=== PATIENT | male | born 1940 | race Caucasian/White ===

== ENCOUNTER 2020-10-07 20:17 | Observation (INO) | payer MEDICARE, BC ==
[~2020-10-07] VITALS: Ht 170.2 cm; Wt 74.4 kg
--- NOTE | ~2020-10-07 | CON ---
[address] [address] CONSULTATION Name: FLORESITA CABALLERO Room: [address] Carole#: [id number] Admission: 10/08/20 Attend Phys: Tahir Moffett Discharge: Date of : 38 Report #: [id number] THIS REPORT FOR: cc: Lewis Pretty MD, Thomas MD Arakelov,Stan Winston MD ~ DOC #: [id number] Stan Alvarez MD DATE OF CONSULTATION: 10/08/2020 REQUESTING PHYSICIAN: Dr. Juarez. REASON FOR CONSULTATION: Acute kidney injury. HISTORY OF PRESENT ILLNESS: The patient is an 80-year-old gentleman with medical history significant for lung cancer with metastasis to the brain. Followed by four h agent, Dr. Love my partner, also follows with oncologist at [facility]. He was admitted recently at [facility] discharged just a week ago. He had acute kidney injury while he was there, but apparently was not told the reason for that. His creatinine went up from 2.5-3.7. His told me that the creatinine was 3.7 at discharge. Over there, they were suspecting pulmonary embolism and started him empirically on blood thinners. Next day, he developed some bleeding and a branch library clerk stopped anticoagulation and apparently told the patient's that he did not think that the patient had pulmonary embolism. He also had some seizures post-weaning of his steroids. He has steroids for his brain tumor. Also, had radiation to the brain tumor. He usually does not have a brain tumor and he has metastatic tumor to his brain from his lungs. PAST MEDICAL HISTORY: Also significant for diabetes mellitus type 2, chronic kidney disease stage IV and history of lung cancer as mentioned earlier. SOCIAL HISTORY: No current tobacco or alcohol abuse. FAMILY HISTORY: Positive for lung cancer, diabetes, and esophageal cancer. REVIEW OF SYSTEMS: Positive for overall weakness, low energy level. PHYSICAL EXAMINATION: GENERAL: Awake, alert, and oriented, no acute distress. VITAL SIGNS: Blood pressure is 137/53, heart rate 67, afebrile. HEENT: Pupils are round. NECK: Supple. LUNGS: Decreased air movements. No crackles. HEART: Distant heart tones[place] [address] CONSULTATION Name: FLORESITA CABALLERO Room: [address] Carole#: [id number] Admission: 10/08/20 Attend Phys: Tahir Moffett Discharge: Date of : 38 Report #: [id number] ABDOMEN: Obese, soft. EXTREMITIES: Lower extremities, +1 edema. LABORATORY DATA: Revealed hemoglobin 7.8, platelet count 400,000. Serum sodium 134, potassium 4.7, chloride 101, carbon dioxide 23, BUN 43, creatinine 3.9. ASSESSMENT: 1. Acute kidney injury, etiology not entirely clear. His creatinine was going up while he was at a nursing facility 2 weeks ago. He looks somewhat dry to me. 2. Chronic kidney disease stage 4. 3. Diabetes mellitus type 2. 4. Metastatic lung cancer. PLAN: 1. I asked him to drink a little more fluids, but I would not give him any IV fluids. 2. Avoid nephrotoxic medications. 3. Obtain renal ultrasound and bladder ultrasound. 4. Follow his labs. 5. Long conversation with him and his . MD KETAN Vaughan By: [id number] Alvarez MD /nt
[~2020-10-07 20:17] MED LIST: AMARYL2 MG PO; AMLODIPINE BESY10 MG PO; AZITHROMYCIN 2250 MG PO; BENZONATATE100 MG PO; CEFDINIR300 MG PO; LISINOPRIL10 MG PO; OMEPRAZOLE40 MG PO; PREDNISONE 20 M20 MG PO; PROBIOTIC1 EAC1 PO; VENTOLIN HFA 1818 GM INH; VITAMIN D1000 UNI1 PO; VYVANSE10 M1 PO
[2020-10-07 20:22] VITALS: BP 151/73
[2020-10-07 20:58] LABS: HEMOGLOBIN 7.8 gm/dL (14.0-18.0); MCH 29.1 pg (26.0-34.0); MCV 85.7 fL (80.0-100.0); MPV 6.4 fl. (7.2-11.1); NUCLEATED RBCS 0 /100WBC; PLATELET COUNT* 400 thou/uL (150-400); RBC 2.68 mil/uL (4.50-6.00); RDW-CV 17.3 % (10.5-14.5); WBC 6.2 thou/uL (4.0-11.0)
[2020-10-07] MEDS ORDERED: KEPPRA 500 MG500 M1 PO (20:58)
[2020-10-07] MEDS ORDERED: LOPRESSOR50 MG PO (20:58)
[2020-10-07 21:06] LABS: CALCIUM 8.9 mg/dL (8.5-10.1); CREATININE 3.9 mg/dL (0.6-1.3); POTASSIUM 4.7 mmol/L (3.5-5.1)
[2020-10-07 21:20] LABS: ALBUMIN 2.8 g/dL (3.4-5.0); CK-MB MASS 1.4 ng/mL (<0.5-3.6); TOTAL BILIRUBIN 0.3 mg/dL (<0.1-1.0); TOTAL PROTEIN 7.1 g/dL (6.4-8.2)
[2020-10-07 21:24] LABS: ABSOLUTE EOSINOPHILS 0.2 thou/uL (0.0-0.7); ABSOLUTE LYMPHOCYTES 1.7 thou/uL (0.8-5.3); ABSOLUTE MONOCYTES 0.6 thou/uL (0.0-1.2); ABSOLUTE NEUTROPHILS 3.7 thou/uL (1.6-8.1)
[2020-10-07 21:25] LABS: ANISOCYTOSIS 1+; PLATELET ESTIMATE ADEQUATE
[2020-10-07 21:26] LABS: OVALOCYTES Occasional
[2020-10-07 21:39] LABS: PROTIME 10.7 Seconds (9.20-11.50)
[2020-10-07 21:51] LABS: URINE BILIRUBIN NEGATIVE (Negative); URINE BLOOD TRACE (Negative); URINE CLARITY CLEAR; URINE COLOR YELLOW; URINE GLUCOSE-RANDOM NEGATIVE (Negative); URINE KETONES NEGATIVE (Negative); URINE LEUKOCYTES-REFLEX NEGATIVE (Negative); URINE NITRITE-REFLEX NEGATIVE (Negative); URINE PROTEIN 2+ (Negative); URINE SPECIFIC GRAVITY <= 1.005 (1.005-1.030); URINE UROBILINOGEN 0.2 E.U./dl (0.2-1.0)
[2020-10-07 22:05] LABS: BACTERIA-REFLEX None Seen /HPF (None Seen); CASTS None Seen /LPF (None Seen); SQUAMOUS NONE SEEN /LPF (0-3); URINE RBC None Seen /HPF (0-2); URINE WBC-REFLEX None Seen /HPF (0-5)
[2020-10-07 22:07] LABS: CRYSTALS None Seen /LPF (None Seen)
[2020-10-07 22:58] LABS: BE -3.4 mmol/L (-2 to +3); PCO2 VENOUS 38.4 mmHg (41.0-51.0); PO2 VENOUS 54.6 mmHg (35.0-45.0)
[2020-10-08] VITALS (7 sets, daily range): BP systolic 119–138; BP diastolic 53–68
--- NOTE | 2020-10-08 14:20 | EKG ---
[place] [address] ELECTROCARDIOGRAM REPORT Name: FLORSEITA CABALLERO Room: [address]R.#: [id number] Admission: 10/08/20 Attend Phys: Jarrett Juarez Discharge: Date of : 38 Date of Service: 10/07/202054 Report #: [id number] THIS REPORT FOR: //name// [facility] ED Test Date: 2020-10-07 Test Time: 20:55:31 Pat Name: FLORESITA CABALLERO Department: Room: [facility] Gender: M Roof Technician: [facility] : 1940 Requested By: Lilli Alexander Order Number: [id number] MD: Stephon Narayanan Measurements Intervals [place] Rate: 72 P: 7 NH: 235 QRS: 2 QRSD: 99 T: 61 QT: 405 QTc: 444 Interpretive Statements Sinus rhythm Prolonged NH interval Probable anteroseptal infarct, old No previous ECG available for comparison Electronically Signed On 10-08-2020 14:20:34 CDT by Stephon Narayanan [email or web address] <ELECTRONICALLY SIGNED> By: Stephon Narayanan MD, [facility] 10/08/20 1420 54 54 Stephon Narayanan MD, [facility] /EPI
[2020-10-09 02:53] VITALS: BP 120/53
[2020-10-09 05:35] LABS: ALBUMIN 2.3 g/dL (3.4-5.0); CALCIUM 8.6 mg/dL (8.5-10.1); CREATININE 4.1 mg/dL (0.6-1.3); POTASSIUM 4.5 mmol/L (3.5-5.1); TOTAL BILIRUBIN 0.3 mg/dL (<0.1-1.0)
[2020-10-09 07:45] VITALS: BP 137/53
[2020-10-09 08:41] VITALS: BP 132/60
[2020-10-09 12:32] VITALS: BP 137/53
[2020-10-09 13:54] LABS: HEMATOCRIT 21.9 % (42.0-52.0); HEMOGLOBIN 7.2 gm/dL (14.0-18.0); MCH 28.9 pg (26.0-34.0); MCHC 32.9 g/dL (28.0-37.0); MCV 88.1 fL (80.0-100.0); RBC 2.49 mil/uL (4.50-6.00); WBC 4.9 thou/uL (4.0-11.0)
[2020-10-09 15:51] VITALS: BP 121/45
== END 2020-10-09 16:20 | disposition home or self-care (01) ==
LOC: M.ERS 20:17 → M.TBA-ER 10-08 01:16 → M.2W 10-08 01:16
PROVIDERS: Internal Medicine; Internal Medicine Nephrology; Personal Emergency Response Attendant; ADMIT Internal Medicine; ATTEND Internal Medicine
DX: I13.0 Hypertensive heart and chronic kidney disease with heart failure and stage 1 through stage 4 chronic kidney disease, or unspecified chronic kidney disease (principal); E11.22 Type 2 diabetes mellitus with diabetic chronic kidney disease; I50.9 Heart failure, unspecified; N18.4 Chronic kidney disease, stage 4 (severe); N17.9 Acute kidney failure, unspecified; C34.30 Malignant neoplasm of lower lobe, unspecified bronchus or lung; C71.9 Malignant neoplasm of brain, unspecified; Z87.891 Personal history of nicotine dependence; Z79.899 Other long term (current) drug therapy; Z20.822 Contact with and (suspected) exposure to COVID-19

== ENCOUNTER 2021-04-04 22:04 | Emergency (ER) | payer MEDICARE, BC ==
[~2021-04-04] VITALS: Ht 180.3 cm; Wt 85.7 kg
[~2021-04-04 22:04] MED LIST changes: +KEPPRA 500 MG500 M1 PO; +LOPRESSOR50 MG PO
[2021-04-04 22:16] VITALS: BP 193/64
== END 2021-04-04 22:26 | disposition home or self-care (01) ==
LOC: M.ERS 22:04
DX: M79.601 Pain in right arm (principal); G40.909 Epilepsy, unspecified, not intractable, without status epilepticus